=== PATIENT | male | born 1945 | race Caucasian/White ===

== ENCOUNTER 2017-08-19 23:59 | Observation (INO) | payer OTHER, BC ==
[~2017-08-19] VITALS: Ht 182.9 cm; Wt 87.4 kg
[~2017-08-19 23:59] MED LIST: ACTOPLUS MET1 TABLET PO; ASPIRIN81 M1 PO; Aspirin E.C. PO; BYSTOLIC10 MG PO; CEFTIN500 MG PO; COREG25 M1 PO; Flagyl PO; LIPITOR10 MG PO; LIPITOR20 MG PO; MAVIK2 MG PO; MAVIK4 MG PO; PRILOSEC20 MG PO; PROZAC20 M1 PO; PROZAC20 MG PO; REQUIP0.5 MG PO; TEKTURNA300 MG PO; TRILIPIX135 MG PO; ULTRAM50 MG PO; ZANTAC300 MG PO; ZETIA10 MG PO
[2017-08-20 01:28] LABS: HEMATOCRIT 50.9 % (38.0-50.0); HEMOGLOBIN 17.5 G/DL (12.5-16.6); MCH 30.5 PG (29.0-34.0); MCHC 34.4 G/DL (30.0-36.0); MCV 88.8 FL (86-99); PLATELET COUNT 274 K/uL (156-360); RBC DIS.WIDTH-CV 12.7 % (11.8-14.6); RBC DIS.WIDTH-SD 41.5 % (39-53); RED BLOOD COUNT 5.73 M/uL (4.00-5.50); WHITE BLOOD COUNT 16.8 K/uL (4.1-10.2)
[2017-08-20 01:38] LABS: ALBUMIN 4.5 g/dL (3.2-4.8); CHLORIDE 102 mEq/L (99-109); POTASSIUM 4.2 mEq/L (3.7-5.4); SODIUM 137 mEq/L (136-147)
[2017-08-20 01:40] LABS: GLUCOSE 248 mg/dL (70-99)
[2017-08-20 01:41] LABS: TOTAL PROTEIN 8.2 g/dL (6.4-8.3)
[2017-08-20 01:42] LABS: TOTAL BILIRUBIN 0.5 mg/dL (0.0-1.0)
[2017-08-20 01:44] LABS: ALKALINE PHOSPHATASE 114 IU/L (3-129); CREATININE 1.2 mg/dL (0.6-1.3); GFR ESTIMATE (CALCULATED) > 59 mL/min/ (58.99-99999)
[2017-08-20 01:45] LABS: UREA NITROGEN (BUN) 16 mg/dL (9-23)
[2017-08-20 01:46] LABS: AST (GOT) 33 IU/L (2-34)
[2017-08-20 01:47] LABS: ALT (GPT) 50 IU/L (3-49)
[2017-08-20 01:48] LABS: LIPASE 15 U/L (1.0-51.0)
[2017-08-20 01:54] LABS: TROP-I INTERPRETATION NEGATIVE; TROPONIN-I < 0.01 ng/mL (0.0-0.30)
[2017-08-20 04:54] LABS: STOOL OCCULT BLD 1ST SPECIMEN NEGATIVE
[2017-08-20 05:12] VITALS: BP 163/94
[2017-08-20 05:24] LABS: C DIFF TOXIN NEGATIVE (NEGATIVE)
[2017-08-20 07:30] VITALS: BP 161/89
[2017-08-20] MEDS ORDERED: NITROSTAT0.4 MG SL (10:01)
[2017-08-20] MEDS ORDERED: FLONASE16 G1 BOTH NARES (10:01)
[2017-08-20] MEDS ORDERED: TRESIBA FL200 UNIT/1 SC ×2 (10:02→10:04)
[2017-08-20] MEDS ORDERED: PLAVIX75 MG PO (10:02)
[2017-08-20] MEDS ORDERED: COZAAR100 MG PO (10:02)
[2017-08-20] MEDS ORDERED: CLARITIN,ALAVAR10 MG PO (10:02)
[2017-08-20] MEDS ORDERED: TOPROL XL100 MG PO (10:02)
[2017-08-20] MEDS ORDERED: JANUMET XR 50-1 EAC1 PO (10:05)
[2017-08-20] MEDS ORDERED: PROTONIX40 MG PO (10:06)
[2017-08-20] MEDS ORDERED: FISH OIL 1,0001 EA10 PO (10:06)
[2017-08-20] MEDS ORDERED: GAVISCON TABLE1 EACH PO (10:06)
[2017-08-20] MEDS ORDERED: VITAMIN D31000 UNI2 PO (10:07)
[2017-08-20] MEDS ORDERED: SALINE NASAL SP45 ML BOTH NARES (10:07)
[2017-08-20 11:18] VITALS: BP 150/83
[2017-08-20 19:20] VITALS: BP 133/68
[2017-08-20 23:41] VITALS: BP 126/70
[2017-08-21 05:02] LABS: BASOPHIL (%) 0.2 % (0-1); EOSINOPHIL (%) 2.1 % (0-5); EOSINOPHIL COUNT 0.2 K/uL (0-0.3); HEMOGLOBIN 14.3 G/DL (12.5-16.6); IMMATURE GRANULOCYTE (%) 0.4 % (0.0-0.7); LYMPHOCYTE (%) 33.7 % (15-42); LYMPHOCYTE COUNT 2.8 K/uL (1.0-2.8); MCHC 33.3 G/DL (30.0-36.0); MCV 90.3 FL (86-99); MONOCYTE (%) 10.9 % (3-12); MONOCYTE COUNT 0.9 K/uL (0-0.8); NEUTROPHIL (%) 52.7 % (45-76); NEUTROPHIL COUNT 4.4 K/uL (1.8-6.4); PLATELET COUNT 219 K/uL (156-360); RBC DIS.WIDTH-CV 12.8 % (11.8-14.6); RBC DIS.WIDTH-SD 42.1 % (39-53); RED BLOOD COUNT 4.76 M/uL (4.00-5.50); WHITE BLOOD COUNT 8.4 K/uL (4.1-10.2)
[2017-08-21 05:11] LABS: ALBUMIN 3.7 g/dL (3.2-4.8); CHLORIDE 107 mEq/L (99-109); POTASSIUM 3.9 mEq/L (3.7-5.4); SODIUM 141 mEq/L (136-147)
[2017-08-21 05:17] LABS: GFR ESTIMATE (CALCULATED) > 59 mL/min/ (58.99-99999); PHOSPHORUS 2.2 mg/dL (2.5-4.9)
[2017-08-21 05:18] LABS: UREA NITROGEN (BUN) 11 mg/dL (9-23)
[2017-08-21 05:22] LABS: GLUCOSE 102 mg/dL (70-99)
[2017-08-21 07:56] VITALS: BP 148/69
[2017-08-21 11:28] VITALS: BP 139/73
[2017-08-21 17:15] VITALS: BP 143/71
[2017-08-21 19:37] VITALS: BP 139/64
[2017-08-22 00:29] VITALS: BP 129/61
[2017-08-22 04:38] VITALS: BP 149/67
[2017-08-22 08:41] VITALS: BP 140/65
[2017-08-22 11:41] VITALS: BP 122/64
[2017-08-22] MEDS ORDERED: ASPIRIN81 M2 PO (12:05)
== END 2017-08-22 13:54 | disposition home or self-care (01) ==
LOC: EME 23:59 → EDOF 08-20 03:47 → 4SOUTH 08-20 03:47 → EDOF 08-20 03:47 → ENRESERV 08-20 03:49 → 4SOUTH 08-20 04:58 → ENPENDDIS 08-22 → 4SOUTH 08-22 13:54
PROVIDERS: Emergency Medicine; Internal Medicine
PROC: 0D748ZZ Dilation of Esophagogastric Junction, Via Natural or Artificial Opening Endoscopic (ICD-10-PCS; principal; 2017-08-21)
PROC: 0DB68ZX Excision of Stomach, Via Natural or Artificial Opening Endoscopic, Diagnostic (ICD-10-PCS; principal; 2017-08-21)
PROC: 0DBL8ZZ Excision of Transverse Colon, Via Natural or Artificial Opening Endoscopic (ICD-10-PCS; principal; 2017-08-21)
PROC: 0DBE8ZX Excision of Large Intestine, Via Natural or Artificial Opening Endoscopic, Diagnostic (ICD-10-PCS; principal; 2017-08-21)
DX: K52.9 Noninfective gastroenteritis and colitis, unspecified (principal); K29.60 Other gastritis without bleeding; K22.2 Esophageal obstruction; K63.5 Polyp of colon; K64.8 Other hemorrhoids; I10 Essential (primary) hypertension; K21.9 Gastro-esophageal reflux disease without esophagitis; I25.10 Atherosclerotic heart disease of native coronary artery without angina pectoris; E11.65 Type 2 diabetes mellitus with hyperglycemia; Z86.010 Personal history of colon polyps; R13.10 Dysphagia, unspecified; F32.9 Major depressive disorder, single episode, unspecified; N40.1 Benign prostatic hyperplasia with lower urinary tract symptoms; I25.2 Old myocardial infarction; F17.210 Nicotine dependence, cigarettes, uncomplicated; Z79.4 Long term (current) use of insulin; Z87.19 Personal history of other diseases of the digestive system
CPT/HCPCS: 74176; 80048; 80053; 80069; 82272; 82948; 83605; 83630; 83690; 84484; 85025; 85027; 87177; 87493; 87506; 93005; 99281; 99284; G0378; J0744; J1650; J1815; J2250; J2405; J2765; J3010; J7030; S0030